=== PATIENT | female | born 1970 | race Caucasian/White ===

== ENCOUNTER 2019-04-30 16:27 | Emergency (ER) | payer MEDICARE, MEDICAID ==
--- NOTE | 2019-04-30 17:29 | ER Document Report ---
HPI - HPI Patient complains to provider of: Pain with void Time Seen by Provider: 04/30/19 17:18 Onset: Other Onset/Duration: Persistent - 2 weeks Quality of pain: Burning Severity: Moderate Pain Level: 3 Context: Patient presents to the emergency department with complaints of pain with void. Patient reports symptoms for the past 2-week. She also complains of itch. She reports when she voids nam while she is voiding and when the urine touches her skin. She complains of low back left-sided back pain. Also complains of vaginal discharge clear reports she is sexually active with one partner and does not use protection. Reports she went to see her provider Dr. Hines at [facility] and was treated with Keflex. She reports the symptoms are not getting better. She reports he did not do a urine. Associated Symptoms: None Exacerbated by: Other - void Relieved by: Denies Similar symptoms previously: Yes Recently seen / treated by doctor: Yes - REPRODUCTIVE Reproductive: DENIES: : Past Medical History - General Information source: Patient - Social History Smoking Status: Unknown if Ever Smoked Cigarette use (# per day): No Frequency of alcohol use: None Drug Abuse: None Family History: None Patient has suicidal ideation: No Patient has homicidal ideation: No Endocrine Medical History: Reports: Hx Hypothyroidism Psychiatric Medical History: Reports: Hx Depression Past Surgical History: Reports: Hx Breast Surgery Vertical Provider Document - CONSTITUTIONAL Agree With Documented VS: Yes Exam Limitations: No Limitations General Appearance: WD/WN, No Apparent Distress - INFECTION CONTROL TRAVEL OUTSIDE OF THE [place] IN LAST 30 DAYS: No - HEENT HEENT: Atraumatic, Normocephalic - NECK Neck: Normal Inspection, Supple. negative: Lymphadenopathy-Left, Lymphadenopathy-Right - RESPIRATORY Respiratory: Breath Sounds Normal, No Respiratory Distress - CARDIOVASCULAR Cardiovascular: Regular Rate, Regular Rhythm - GI/ABDOMEN Gastrointestinal: Abdomen Soft, Abdomen Non-Tender - REPRODUCTIVE Female Genitalia: Normal Inspection - BACK Back: Normal Inspection, CVA Tenderness-Left. negative: CVA Tenderness-Right - MUSCULOSKELETAL/EXTREMETIES Musculoskeletal/Extremeties: YOSELIN AGUILAR - NEURO Level of Consciousness: Awake, Alert, Appropriate Motor/Sensory: No Motor Deficit - DERM Integumentary: Warm, Dry Adult Front & Back Diagram: 1 - left lower back ttp Course - Re-evaluation Re-evalutation: 04/30/19 17:55 Pelvic complete - Vital Signs Vital signs: Temp Pulse Resp BP Pulse Ox 98.7 F 67 18 141/58 H 100 04/30/19 16:28 04/30/19 16:28 04/30/19 16:28 04/30/19 16:28 04/30/19 16:28 Procedures - Pelvic Exam Pelvic exam Time completed: 17:55 Cultures obtained: Yes Wet prep obtained: Yes Herpes culture obtained: No POC sent to lab: No Foreign body removed: No Bimanual exam performed: Yes Notes: 04/30/19 17:55 geremias briones pct Discharge - Discharge Clinical Impression: Voiding pain, Vaginal discharge, Trichomonas infection, Bacterial vaginosis, Possible exposure to STD UTI (urinary tract infection) Qualifiers: Urinary tract infection type: site unspecified Hematuria presence: with hematuria Qualified Code(s): N39.0 - Urinary tract infection, site not specified Condition: Stable Disposition: HOME, SELF-CARE Instructions: Azithromycin ([facility]), Chlamydia ([facility]), Gonorrhea ([facility]), Nitrofurantoin ([facility]), [facility], Rocephin ([facility]), Trichomonas Infection ([facility]), Urinary Anesthetic Agent ([facility]), Urinary Tract Infection ([facility]), Vaginosis, Bacterial ([facility]) Additional Instructions: *You have been evaluated for vaginal discharge, pain with void, Urinary tract infection, Bacterial vaginosis, trichomonas, possible std exposure *Urine culture is pending, you will be contacted should you need a different antibiotic for your UTI. *You may contact the culture nurse at [phone] for your STD results Wednesday through Wednesday 8-4-you have been treated for gonorrhea and chlamydia *Take medication as prescribed your UTI, BV and trichomonas *Follow up with your [employer]ENDANT or the health department for recheck within one week *Avoid sexual intercourse until follow up *Return to ED for worsening condition, changes, needs Monitor your blood pressure. Your blood pressure was elevated today. This may be because you were anxious, in pain or because you need medication. It is important to follow up with your primary care provider for full evaluation. Prescriptions: Metronidazole [Flagyl 500 mg Tablet] 500 mg PO BID #14 tablet Nitrofurantoin/Nitrofuran Mac [Macrobid 100 mg Capsule] 100 mg PO BID #20 capsule Phenazopyridine HCl [Pyridium 200 mg Tablet] 200 mg PO TID #15 tablet Forms: Elevated Blood Pressure Referrals: JEREMÍAS TRACY PA-C [NO LOCAL MD] - Follow up in 1 week
[2019-04-30 17:59] LABS: BACTERIA (WET MOUNT) 3+ BACTERIA SEEN; RBCS (WET MOUNT) FEW RBCS SEEN; T.VAGINALIS (WET MOUNT) TRICHOMONAS SEEN; WBCS (WET MOUNT) 3+ WBCS SEEN; YEAST (WET MOUNT) NO YEAST SEEN
[2019-04-30 18:02] LABS: APPEARANCE,URINE CLOUDY; BILIRUBIN,URINE NEGATIVE (NEGATIVE); COLOR,URINE YELLOW; GLUCOSE, URINE NEGATIVE (NEGATIVE); KETONES,URINE NEGATIVE (NEGATIVE); LEUKOCYTE ESTERASE,URINE LARGE (NEGATIVE); NITRITE,URINE NEGATIVE (NEGATIVE); PROTEIN,URINE NEGATIVE (NEGATIVE); URINE SPECIFIC GRAVITY 1.015; UROBILINOGEN,URINE NEGATIVE mg/dL (<2.0)
[2019-04-30] MEDS ORDERED: LIDOCAINE 1% INJ-PF (10 MG/ML) 30 ML SDV NEB ONE (18:27)
[2019-04-30] MEDS ORDERED: METRONIDAZOLE 500 MG TABLET PO ONE (18:27)
[2019-04-30] MEDS ORDERED: AZITHROMYCIN 250 MG TABLET PO ONE (18:27)
[2019-04-30] MEDS ORDERED: CEFTRIAXONE INJ 500 MG VIAL IM ONE (18:27)
[2019-04-30] MEDS ORDERED: NITROFURANTOIN MONOHYD/M-CRYST 100 MG CAPSULE PO ONE (18:28)
[2019-04-30 19:00] VITALS: BP 109/75
[2019-04-30 19:29] LABS: CHLAM PCR NOT DETECTED (NOT DETECT); GON PCR NOT DETECTED (NOT DETECT)
== END 2019-04-30 19:13 | disposition home or self-care (01) ==
LOC: ER 16:27
DX: N76.0 Acute vaginitis (principal); B96.89 Other specified bacterial agents as the cause of diseases classified elsewhere; A59.9 Trichomoniasis, unspecified; M54.5 Low back pain; Z20.2 Contact with and (suspected) exposure to infections with a predominantly sexual mode of transmission
CPT/HCPCS: 99283; 96372; 87086; 87210; 81001; 87491; 87591; A9270 ×3; J3490; J0696; J8499